=== PATIENT | male | born 1945 | race Caucasian/White ===

== ENCOUNTER 2021-08-30 09:08 | Outpatient (CLI) | payer MEDICARE, OTHER | END 2021-08-30 23:59 | disposition home or self-care (01) | LOC: LAB 09:08 | PROVIDERS: ATTEND Surgery | DX: Z01.812 Encounter for preprocedural laboratory examination (principal); Z20.822 Contact with and (suspected) exposure to COVID-19 ==

== ENCOUNTER 2021-09-02 07:15 | Day surgery (SDC) | payer MEDICARE, OTHER ==
[2021-09-02] MEDS ORDERED: LIDOCAINE-MPF 2% 5 ML VIAL IJ ONE (07:16)
[2021-09-02] MEDS ORDERED: PROPOFOL 200 MG/20 ML BOTTLE IV ONE (07:16)
[2021-09-02] MEDS ORDERED: GLYCOPYRROLATE 0.2 MG/ML VIAL IJ ONE (07:16)
[2021-09-02 08:00] LABS: HEMATOCRIT 29.6 % (36.7-47.1); MEAN CORPUSCULAR HEMOGLOBIN 23.7 uug (23.8-33.4); MEAN CORPUSCULAR VOLUME 76.1 fL (73.0-96.2); PLATELET COUNT (AUTO) 322 K/uL (152-348)
[2021-09-02 08:02] LABS: *BILIRUBIN,URIN NEGATIVE (NEGATIVE); *BLOOD, URINE 1+ (NEGATIVE); *CLARITY,URINE CLOUDY (CLEAR); *COLOR,URINE YELLOW (YELLOW); *KETONES,URINE NEGATIVE (NEGATIVE); *UROBILINOGEN,URINE 0.2 E.U./dl (NORMAL); LEUKOCYTE ESTERASE ,URINE 3+ (NEGATIVE); NITRITE, URINE NEGATIVE (NEGATIVE); UGLUCOSE NEGATIVE (NEGATIVE)
[2021-09-02 08:02] LABS: CREATININE 1.1 mg/dL (0.6-1.3); POTASSIUM 4.2 mmol/L (3.5-5.1)
[2021-09-02 08:07] LABS: BILIRUBIN,TOTAL 0.5 mg/dL (0.2-1.0); TOTAL PROTEIN, SERUM 6.9 g/dL (6.4-8.2)
[2021-09-02 08:57] LABS: BACTERIA,URINE MANY /HPF (NONE SEEN); SQUAMOUS EPITHELIAL CELL,UR MODERATE /HPF (NONE SEEN); WBC,URINE 80-100 /HPF (0-3)
== END 2021-09-02 12:40 | disposition home or self-care (01) ==
LOC: DS 07:15
PROVIDERS: ATTEND Surgery
DX: D64.9 Anemia, unspecified (principal); K21.00 Gastro-esophageal reflux disease with esophagitis, without bleeding; D12.4 Benign neoplasm of descending colon; K29.50 Unspecified chronic gastritis without bleeding; K29.80 Duodenitis without bleeding; K63.89 Other specified diseases of intestine; K31.89 Other diseases of stomach and duodenum; I10 Essential (primary) hypertension; Z79.899 Other long term (current) drug therapy; Z98.890 Other specified postprocedural states
CPT/HCPCS: 45385; 43239; 71045; 80053; 81001; 85025; 85730; 87086; 36415; J3490 ×2; J7120; A4663